=== PATIENT | male | born 1990 | race African-American/Black ===

== ENCOUNTER 2018-10-10 19:04 | Emergency (ER) | payer MEDICAID ==
[~2018-10-10] VITALS: Ht 175.3 cm; Wt 92.3 kg
[2018-10-10 19:19] VITALS: Ht 175.3 cm; Wt 92.3 kg
== END 2018-10-10 19:20 | disposition left against medical advice (07) ==
LOC: D.ER 19:04
DX: R10.11 Right upper quadrant pain (principal)